=== PATIENT | female | born 1975 | race African-American/Black ===

== ENCOUNTER 2022-01-08 11:03 | Emergency (ER) | payer MEDICAID ==
[~2022-01-08] VITALS: Ht 162.6 cm; Wt 90.0 kg
[2022-01-08] MEDS ORDERED: LEVETIRACETAM 500MG TABLET PO ONE (11:15)
[2022-01-08] MEDS ORDERED: keppra (11:15)
[2022-01-08 12:25] LABS: BASOPHILS % 0.6 % (0.0-2.0); EOSINOPHILS % 0.5 % (0.0-5.0); HEMATOCRIT. 36.2 % (36.0-48.0); HEMOGLOBIN. 11.5 g/dL (12.0-16.0); LYMPHOCYTES % 17.2 % (20.0-50.0); MEAN CORPUSCULAR HEMOGLOBIN 23.6 pg (28.0-32.0); MEAN CORPUSCULAR VOLUME 74.2 fL (81.0-99.0); MEAN PLATELET VOLUME 7.1 fl (7.4-10.4); NEUTROPHILS % 75.7 % (40.0-76.0); PLATELET 492 x1000/uL (130-400); RED BLOOD CELL COUNT 4.88 mill/uL (4.2-5.4); RED CELL DISTRIBUTION WIDTH 16.8 % (11.6-14.6)
[2022-01-08 12:33] LABS: CHLORIDE 104 mEq/L (98-107)
[2022-01-08 12:42] LABS: ETHANOL BLOOD < 10 mg/dL
[2022-01-08 12:44] LABS: HCG SCREEN NEGATIVE
[2022-01-08 13:26] LABS: CLARITY URINE CLEAR (CLEAR); COLOR URINE YELLOW (YELLOW); KETONES URINE TRACE (NEGATIVE); LEUKOCYTE ESTERASE URINE TRACE (NEGATIVE); NITRITE URINE NEGATIVE (NEGATIVE); OCCULT BLOOD URINE 2+ (NEGATIVE); PH URINE 5.5 (4.5-8.0); PROTEIN URINE 2+ (NEGATIVE); SPECIFIC GRAVITY URINE 1.023 (1.005-1.030); UROBILINOGEN URINE 0.2 E.U./dL (0.2-1.0)
[2022-01-08] MEDS ORDERED: ACET-2708 MT (13:29)
[2022-01-08] MEDS ORDERED: AMOX1TAB16 MT (13:29)
[2022-01-08 13:39] LABS: *AMPHETAMINES SCREEN URINE NEGATIVE (NEGATIVE); *BARBITURATES SCREEN URINE NEGATIVE (NEGATIVE); *COCAINE SCREEN URINE NEGATIVE (NEGATIVE); METHADONE URINE SCREEN NEGATIVE (NEGATIVE); PHENCYCLIDINE URINE SCREEN NEGATIVE (NEGATIVE)
[2022-01-08 13:41] LABS: *BENZODIAZEPINES SCREEN URINE PRESUMTIVE POSITIVE (NEGATIVE); CANNABINOID URINE SCREEN PRESUMTIVE POSITIVE (NEGATIVE); OPIATES URINE SCREEN PRESUMTIVE POSITIVE (NEGATIVE)
[2022-01-08 13:49] VITALS: BP 154/71
[2022-01-08] MEDS ORDERED: LEVETIRACETAM 500MG TABLET PO NR (14:00)
[2022-01-08] MEDS ORDERED: MORPHINE SULFATE 4 MG/ML CPJ (NOT FOR IM USE) IV NR (14:00)
[2022-01-08] MEDS ORDERED: MORPHINE SULFATE 4 MG/ML CPJ (NOT FOR IM USE) IV ONE (14:00)
[2022-01-08] MEDS: AMOXICILLIN/POTASSIUM CLAVULANATE 875/125MG TAB PO NR ×2 (14:05→15:26)
[2022-01-08] MEDS ORDERED: HYDR-4001 MT (15:11)
[2022-01-08] MEDS ORDERED: KEPP500 MT (15:19)
[2022-01-08] MEDS ORDERED: HYDROCODONE/ACETAMINOPHEN 5/325MG TABLET PO ONE (15:30)
== END 2022-01-08 21:38 | disposition home or self-care (01) ==
LOC: ER 11:17 → SUPCPDRO 16:51 → ER 21:38
DX: R56.9 Unspecified convulsions (principal); S02.5XXA Fracture of tooth (traumatic), initial encounter for closed fracture; R51.9 Headache, unspecified; F19.90 Other psychoactive substance use, unspecified, uncomplicated; Z13.9 Encounter for screening, unspecified; W18.30XA Fall on same level, unspecified, initial encounter; Y93.89 Activity, other specified; Y92.89 Other specified places as the place of occurrence of the external cause; Y99.8 Other external cause status
CPT/HCPCS: 36415; 70450; 70486; 80053; 80305; 80320; 81003; 84703; 85025; 96374; 99285; J2270; G0480